=== PATIENT | female | born 1980 | race Caucasian/White ===

== ENCOUNTER → 2016-07-09 | Outpatient (CLI) | payer OTHER ==
[~2016-07-09] MED LIST: METH750T2 PO; TRAM50TA2 PO
== END | disposition home or self-care (01) ==
LOC: STAR 08:33
PROVIDERS: ATTEND Neurological Surgery
DX: Z01.818 Encounter for other preprocedural examination (principal); M50.00 Cervical disc disorder with myelopathy, unspecified cervical region
CPT/HCPCS: 71020; 72052; 93005

== ENCOUNTER 2016-07-24 05:12 | Inpatient (IN) | payer OTHER ==
[~2016-07-24] VITALS: Ht 142.2 cm; Wt 108.0 kg
[2016-07-24 06:04] LABS: HCG UR OBC PASS
[2016-07-24] MEDS ORDERED: LACTATED RINGERS 1,000 ML IV SCH (06:07)
[2016-07-24] MEDS ORDERED: OXYC1TAB7 PO (06:10)
[2016-07-24 06:14] VITALS: BP 135/84
[2016-07-24] MEDS ORDERED: LIDOCAINE 1%, 2ML SQ PRN (06:30)
[2016-07-24] MEDS ORDERED: THROMBIN 20,000 UNIT VIAL TP ONE (06:50)
[2016-07-24] MEDS ORDERED: SCOPOLAMINE PATCH, 1.5MG PATCH.TD72 TD ONE (06:50)
[2016-07-24] MEDS ORDERED: BUPIVACAINE/PF-EPI 0.25% 1:200K ONE (06:51)
[2016-07-24] MEDS ORDERED: KETAMINE 10 MG/ML, 20ML ONE (07:05)
[2016-07-24] MEDS ORDERED: FENTANYL PF 250 MCG/5ML ONE (07:05)
[2016-07-24] MEDS ORDERED: MIDAZOLAM 1 MG/ML, 2ML ONE (07:06)
[2016-07-24] MEDS ORDERED: SUCCINYLCHOLINE 20 MG/ML, 10ML ONE (07:34)
[2016-07-24] MEDS ORDERED: PROPOFOL 10 MG/ML, 50ML ONE (07:34)
[2016-07-24] MEDS ORDERED: CEFAZOLIN 1,000 MG ONE (07:34)
[2016-07-24] MEDS ORDERED: ONDANSETRON 2MG/ML, 2ML ONE (07:34)
[2016-07-24] MEDS ORDERED: DEXAMETHASONE 4 MG/ML, 1ML ONE (07:34)
[2016-07-24] MEDS ORDERED: PROPOFOL 10 MG/ML, 20ML ONE (07:34)
[2016-07-24] MEDS ORDERED: REMIFENTANIL 2 MG ONE (08:45)
[2016-07-24] MEDS ORDERED: HYDROcodone/APAP 7.5-325MG/15ML UDC PO PRN (09:30)
[2016-07-24] MEDS ORDERED: ONDANSETRON 2MG/ML, 2ML IVPush PRN (09:30)
[2016-07-24] MEDS ORDERED: PROMETHAZINE 25 MG/ML, 1ML IV PRN (09:30)
[2016-07-24] MEDS ORDERED: MEPERIDINE/PF 25MG/0.5ML IVPush PRN (09:30)
[2016-07-24] MEDS ORDERED: ACETAMINOPHEN 325 MG TABLET PO PRN (09:30)
[2016-07-24] MEDS ORDERED: MIDAZOLAM 1 MG/ML, 2ML IV PRN (09:30)
[2016-07-24] MEDS ORDERED: OXYcodone 5 MG/5 ML ORAL.SOL UDC PO PRN (09:30)
[2016-07-24] MEDS ORDERED: FENTANYL PF 100 MCG/2ML ONE (10:12)
[2016-07-24] MEDS ORDERED: OXYcodone 5 MG/5 ML ORAL.SOL UDC ONE (10:12)
[2016-07-24] MEDS: FENTANYL PF 100 MCG/2ML IV PRN ×2 (10:13→10:19)
[2016-07-24] MEDS ORDERED: HYDROmorphone 2 MG/ML, 1ML ONE (10:28)
[2016-07-24] MEDS ORDERED: METHOCARBAMOL 1000MG/10 ML IVPB ONE (10:30)
[2016-07-24] MEDS ORDERED: METHOCARBAMOL 1,000 MG in DEXTROSE 5% 100 ML IV ONE (10:30)
[2016-07-24] MEDS: HYDROmorphone 1 MG/ML, 1ML IV PRN ×3 (10:34→10:53)
[2016-07-24 11:33] VITALS: BP 143/85
[2016-07-24] MEDS ORDERED: ONDANSETRON 2MG/ML, 2ML IV PRN (13:00)
[2016-07-24] MEDS ORDERED: BISACODYL 10 MG SUPP PR PRN (13:00)
[2016-07-24] MEDS: NS + 20MEQ KCL 1,000 ML IV SCH (13:00)
[2016-07-24] MEDS ORDERED: MAGNESIUM HYDROXIDE 8%, 30ML UDC PO PRN (13:00)
[2016-07-24] MEDS ORDERED: PROMETHAZINE 25 MG/ML, 1ML IM PRN (13:00)
[2016-07-24] MEDS ORDERED: morphine SULFATE 10 MG/ML, 1ML IV PRN (13:00)
[2016-07-24] MEDS: DEXAMETHASONE 4 MG/ML, 1ML IV SCH ×2 (13:19→19:36)
[2016-07-24 13:21] VITALS: BP 118/73
[2016-07-24] MEDS: CEFAZOLIN PMX 1GM/50ML 50 ML IVPB SCH (15:39)
[2016-07-24] MEDS: OXYcodone/APAP 5/325MG TABLET PO PRN ×2 (17:15→21:23)
[2016-07-24] MEDS: METHOCARBAMOL 750 MG in DEXTROSE 5% 100 ML IV SCH (18:19)
[2016-07-24 19:08] VITALS: BP 131/82
[2016-07-24] MEDS ORDERED: ZOLPIDEM 5MG TABLET PO PRN (21:00)
[2016-07-24 23:48] VITALS: BP 97/59
[2016-07-25] MEDS: NS + 20MEQ KCL 1,000 ML IV SCH ×2 (00:01→09:00)
[2016-07-25] MEDS: CEFAZOLIN PMX 1GM/50ML 50 ML IVPB SCH (00:01)
[2016-07-25] MEDS: DEXAMETHASONE 4 MG/ML, 1ML IV SCH ×2 (01:40→08:00)
[2016-07-25] MEDS: OXYcodone/APAP 5/325MG TABLET PO PRN ×3 (01:40→09:20)
[2016-07-25] MEDS: METHOCARBAMOL 750 MG in DEXTROSE 5% 100 ML IV SCH ×2 (03:17→10:30)
[2016-07-25 03:18] VITALS: BP 106/59
[2016-07-25] MEDS ORDERED: SENNA/DOCUSATE TABLET PO SCH (09:00)
[2016-07-25 09:18] VITALS: BP 142/85
[2016-07-25] MEDS ORDERED: SENN8.6T79 PO (09:41)
[2016-07-25] MEDS ORDERED: METH32TA PO (09:41)
[2016-07-25] MEDS ORDERED: CALC200T3 PO (09:42)
[2016-07-26] MEDS ORDERED: METHOCARBAMOL 750 MG TABLET PO SCH (18:30)
== END 2016-07-25 10:07 | disposition home or self-care (01) | DRG 472 ==
LOC: ORIP 05:12 → 4NOR 11:30 → DCLOUNGE 07-25 09:58
PROVIDERS: ADMIT Neurological Surgery; ATTEND Neurological Surgery
PROC: 0RB50ZZ Excision of Cervicothoracic Vertebral Disc, Open Approach (ICD-10-PCS; 2016-07-24)
PROC: 0RP104Z Removal of Internal Fixation Device from Cervical Vertebral Joint, Open Approach (ICD-10-PCS; 2016-07-24)
PROC: 4A11X4G Monitoring of Peripheral Nervous Electrical Activity, Intraoperative, External Approach (ICD-10-PCS; 2016-07-24)
PROC: 0RG40A0 Fusion of Cervicothoracic Vertebral Joint with Interbody Fusion Device, Anterior Approach, Anterior Column, Open Approach (ICD-10-PCS; principal; 2016-07-24 07:30)
DX: M40.203 Unspecified kyphosis, cervicothoracic region (principal); G95.20 Unspecified cord compression; Q76.1 Klippel-Feil syndrome; Z91.018 Allergy to other foods; M50.13 Cervical disc disorder with radiculopathy, cervicothoracic region; R20.9 Unspecified disturbances of skin sensation
CPT/HCPCS: 36415; 72040; 81025; 86850; 86900; C1713; J0690; J1100; J1170; J2250; J2405; J2704; J3010; J3480; J3490; C1762; C1778; J0330; J2800; J7120